=== PATIENT | male | born 1940 | race African-American/Black ===

== ENCOUNTER 2019-03-13 18:36 | Inpatient (IN) ==
[2019-03-13] MEDS ORDERED: ASPIRIN PO ONE (18:41)
--- NOTE | 2019-03-13 18:59 | PROVIDER DOCUMENTATION ---
HPI-Chest Pain - General Chief Complaint: Chest Pain Stated Complaint: CHEST PAIN Time Seen by Provider: 03/13/19 18:50 Source: patient Allergies/Adverse Reactions: Patient Allergies Allergy/AdvReac Type Severity Reaction Status Date / Time No Known Allergies Allergy Verified 08/22/13 07:08 Home Medications: Home Medication List Medication Instructions Recorded Confirmed Last Taken Type Meclizine HCl [Antivert] 25 mg PO TID #20 tablet 08/22/13 Unknown Rx Diphenoxylate/Atropine [Lomotil] 1 each PO 4XDAY PRN PRN #10 tablet 07/23/16 Unknown Rx Potassium Chloride [K-Tab ER] 20 meq PO DAILY #14 tablet.er 07/23/16 Unknown Rx - History of Present Illness-CP Nature of Presenting Problem: 78 yof presents with complaints of chest pain that started yesterday at rest, pressure like, non radiating, resolved with out any intervention. Associated with dizziness and shortness of breath. he reports it came back tonight so he presents to the ER. He has DM and HTN. No previous MA, Last stress test was 10years ago, never had a heart cath. Location: reports: substernal Chest Pain Radiation: reports: no radiation Quality of Pain: reports: pressure Severity in ED: mild (07/07) Onset/Duration: 24 hours ago Timing: still present, intermittent Context/Activities at Onset: reports: none Modifying Factors: improves with: nothing Associated Symptoms: reports: denies symptoms Nitro Today/Relief: no nitro taken today Aspirin Treatment Today: no aspirin today Prior Chest Pain/Cardiac Workup: reports: no prior chest pain, no prior cardiac workup, stress test (10 years ago) Similar Symptoms Previously?: No Recently Seen Here or By Another Healthcare Provider: No Review of Systems - Adult - REVIEW OF SYSTEMS - ADULT Constitutional: reports: no symptoms reported. denies: see HPI, chills, fever, fatique, night sweats, weight gain, weight loss, other Eyes: reports: no symptoms reported Ears, Nose, Mouth & Throat: reports: no symptoms reported. denies: see HPI, ear discharge, ear pain, hearing loss, tinnitus, epistaxis, sinus problem, nose pain, loose teeth, mouth/dental pain, mouth swelling, hoarseness, throat pain, throat swelling, other Cardiovascular: reports: chest pain. denies: no symptoms reported, see HPI, edema, heart murmur, irregular heart rate, orthopnea, palpitations, poor circulation, PND, syncope, other Respiratory: reports: shortness of breath (with chest pain). denies: no symptoms reported, see HPI, chronic cough, cough, dyspnea on exertion, excessive sputum production, hemoptysis, pleurisy, wheezing, other Gastrointestinal: reports: no symptoms reported. denies: see HPI, abdominal pain, hematemesis, constipation, diarrhea, difficulty swallowing, frequent heartburn, nausea, poor appetite, rectal bleeding, vomiting, other Genitourinary: reports: no symptoms reported. denies: see HPI, dysuria, discharge, frequency, flank pain, frequent UTI's, hematuria, hesitency, incontinence, urinary retention, urgency, other Musculoskeletal: reports: no symptoms reported. denies: see HPI, bone pain, back pain, frequent leg cramps, joint pain, joint swelling, muscle aches, muscle weakness, neck pain, other Integumentary: reports: no symptoms reported. denies: see HPI, hives, hair loss, itching, mole changes, nail changes, rash, skin sores/ulcer, skin thickening, other Neurological: reports: dizziness/vertigo (with chest pain). denies: no symptoms reported, see HPI, ataxia, headache/migraines, loss of balance, numbness, paresthesia, seizure, slurred speech, syncope, tremors, other Psychiatric: reports: no symptoms reported. denies: see HPI, anxiety, anti- depressant use, alcohol/drug dependence, depression, emotional problems, insomnia, panic attacks, suicidal thoughts, other Endocrine: reports: no symptoms reported. denies: see HPI, change in skin pigment, excessive sweating, goiter, cold intolerance, heat intolerance, incr eased hunger, increased thirst, polyuria, other Hematologic/Lymphatic: reports: no symptoms reported. denies: see HPI, blood clots, easy bruising, low blood count, lymphedema, prolonged bleeding, swollen lymph nodes, transfusions, other Allergic/Immunologic: reports: no symptoms reported. denies: see HPI, allergic reactions, allergic rhinitis, asthma, eczema, food allergy, frequent infections, hay fever, hives, positive PPD, urticaria, other Past History - Adult - PAST MEDICAL HISTORY-ADULT Review of Records: reports: Nursing Assessment Review, Social history reviewed & non-contributory. Major Childhood Illnesses: reports: denies history Cardiovascular: reports: HTN Respiratory: reports: denies history Gastrointestinal: reports: denies history Obstetrical/Gynecological: reports: denies history Genitourinary: reports: prostate cancer Musculoskeletal: reports: denies history Neurological: reports: denies history Psychiatric: reports: denies history Endocrine/Immune: reports: Diabetes Other Conditions: reports: denies history - PRIOR SURGERIES/PROCEDURES Surgical/Procedure History: reports: cholecystectomy - FAMILY HISTORY Family History: reviewed, not pertinent Physical Exam-General - PHYSICAL EXAM-ADULT Initial Vital Signs Reviewed: Yes - CONSTITUTIONAL General Appearance: appears well, alert, no apparent distress - EYES Eyes: PERRL/EOMI, pink conjunctivae - HEAD, EARS, NOSE, MOUTH & THROAT HENMT: normocephalic/atraumatic, moist mucous membranes, normal ENT inspection - NECK Neck: non-tender, full range of motion, supple - RESPIRATORY Respiratory: chest non-tender, lungs clear, normal breath sounds, no pleuratic chest pain, no respiratory distress, no accessory muscle use - CARDIOVASCULAR Cardiovascular: normal peripheral pulses, regular rate, rhythm, no edema, no gallop, no JVD, no murmur - GASTROINTESTINAL (ABDOMEN) Abdominal Exam: normal bowel sounds, non tender, soft - LYMPHATIC Lymphatic: no adenopathy - MUSCULOSKELETAL Back Exam: normal inspection, no CVA tenderness, no vertebral tenderness Extremity: normal range of motion, non-tender, normal gait, normal inspection Peripheral Pulses: radial (R): 2+, radial (L): 2+ - SKIN Integumentary: normal color, normal turgor, warm/dry - HEART Score HEART Score: History: Moderately Suspicious HEART Score: ECG: Normal HEART Score: Age: > or = 65 Years HEART Score: Risk Factors for Atherosclerotic Disease: 1 or 2 Risk Factors HEART Score: Troponin: < or = Normal Limit Total HEART Score:: 4 Progress - PLAN OF CARE/RESULTS Progress/Plan/Lab Results: Vital Signs - 8 hr 03/13/19 18:39 Temperature 98 F Pulse Rate 86 Respiratory Rate 18 Blood Pressure 165/75 O2 Sat by Pulse Oximetry 98 Laboratory Results - last 24 hr 03/13/19 03/13/19 03/13/19 19:49 19:49 19:49 WBC 4.42 L RBC 3.62 L Hgb 10.5 L Hct 31.9 L MCV 88.1 MCH 29.0 MCHC 32.9 L RDW Std Deviation 12.9 Plt Count 193 MPV 9.2 Immature Gran % (Auto) 0.2 Neut % (Auto) 57.7 Lymph % (Auto) 29.9 [place] % (Auto) 10.0 H Eos % (Auto) 2.0 Baso % (Auto) 0.2 Immature Gran # (Auto) 0.01 Neut # (Auto) 2.55 Lymph # (Auto) 1.32 [place] # (Auto) 0.44 Eos # (Auto) 0.09 Baso # (Auto) 0.01 PT INR PTT (Actin FS) Sodium 138 Potassium 3.8 Chloride 103 Carbon Dioxide 24 L Anion Gap 11 BUN 19 Creatinine 1.5 H Estimated GFR/1.73 m2 45 BUN/Creatinine Ratio 13 Glucose 165 H Calculated Osmolality 282 Calcium 9.7 Total Bilirubin 0.20 AST 17 ALT 14 Alkaline Phosphatase 48 Creatine Kinase 157 Troponin T [id number] Pept 9 Total Protein 7.5 Albumin 4.7 Globulin 3.0 Albumin/Globulin Ratio 2.0 03/13/19 03/13/19 19:49 19:49 WBC RBC Hgb Hct MCV MCH MCHC RDW Std Deviation Plt Count MPV Immature Gran % (Auto) Neut % (Auto) Lymph % (Auto) [place] % (Auto) Eos % (Auto) Baso % (Auto) Immature Gran # (Auto) Neut # (Auto) Lymph # (Auto) [place] # (Auto) Eos # (Auto) Baso # (Auto) PT 13.2 INR 0.95 PTT (Actin FS) 31.8 Sodium Potassium Chloride Carbon Dioxide Anion Gap BUN Creatinine Estimated GFR/1.73 m2 BUN/Creatinine Ratio Glucose Calculated Osmolality Calcium Total Bilirubin AST ALT Alkaline Phosphatase Creatine Kinase Troponin T < 0.010 [id number] Pept Total Protein Albumin Globulin Albumin/Globulin Ratio Orders Category Date Time Status Cardiac Monitoring DIRECTED Care 03/13/19 18:41 Active Oxygen Therapy- ED Nursing DIRECTED Care 03/13/19 18:41 Active Saline Loc NOW Care 03/13/19 18:41 Active CHEST-2 VIEWS [RAD] Stat Exams 03/13/19 18:41 Completed CBC WITH ELECTRONIC DIFF [HEME] Stat Lab 03/13/19 19:49 Completed CK PROFILE [SP CHEM] Stat Lab 03/13/19 19:49 Completed CK PROFILE [SP CHEM] Stat Lab 03/13/19 21:09 Received COMPREHENSIVE METABOLIC PANEL [CHEM] Stat Lab 03/13/19 19:49 Completed PRO B-NATRIURETIC PEPTIDE Stat Lab 03/13/19 19:49 Completed PROTIME WITH INR [COAG] Stat Lab 03/13/19 19:49 Completed PTT [COAG] Stat Lab 03/13/19 19:49 Completed TROPONIN T Stat Lab 03/13/19 19:49 Completed TROPONIN T Stat Lab 03/13/19 20:53 Ordered Aspirin Med 03/13/19 18:41 Discontinued 325 mg PO NOW ONE CP/SOB/Palp >45 yrs of Age Stat Oth 03/13/19 18:41 Ordered EKG [EKG] Stat Ther 03/13/19 18:41 Draft EKG [EKG] Stat Ther 03/13/19 20:53 Ordered Result Diagrams: 03/13/19 19:49 03/13/19 19:49 - EKG 1 Time of EKG reading by physician:: 18:48 EKG Read and Signed by:: Marv Hinton EKG Interpretation (*Must complete 3 of following elements*): Abnormal Rate: 66 Rhythm: nsr with sinus arrythmia [place]: normal QRS: normal, NSIVCD ST Wave: normal Prior EKG Comparison: changes noted - XRAY 1 XRAY Study: Chest Impression: See EMR Report (EXAM: CHEST-2 VIEWS 03/13/2019 HISTORY: CHEST PAIN SOB TECHNIQUE: PA and lateral chest COMMENT: There is no evidence of acute cardiac or pulmonary disease. Compared to 08/07/2012 there has been no significant change. IMPRESSION: No evidence of acute disease. Electronically signed by Dyllan Navarro 03/13/2019 7:38 PM 03/13/191937 Interpreting Physician: Dyllan Navarro MD Dictated Date/Time: 03/13/191937 cc: Marv Hinton MD; Av Carlos MD) - CONSULTS/PCP/HOSPITALIST Notification #1 *Consult/PCP/Hospitalist*: DR BRUNNER Time Discussed: 21:24 Consult Disposition: Admit Departure - Departure Date of Disposition Decision: 03/13/19 Time of Disposition Decision: 21:24 DIAGNOSIS: Chest pain Disposition: ADMITTED INPATIENT 09 Certified Medical Emergency: Emergent Condition: Stable Referrals and Follow-Ups: Av Carlos MD [Primary Care Provider] - - Critical Care Note This patient required my direct & personal management of CC.: No Attestation - Physician/ JASWINDER Attestation Patient care was provided by Advanced Practice Provider:: Yes Advanced Practice Provider:: Janice Winn Advanced Practice Provider documentation review:: The Mid-level provider documentation, treatment plan and medical decision making was reviewed by the physician who agrees with all treatment and medical decision making by the MLP. The physician spent face to face time with patient:: No Advanced Practice Provider documentation review:: Supervising physician onsite and consulted in the evaluation and care of this patient. The physician did not have a face to face encounter with the patient.
--- NOTE | 2019-03-13 19:22 | EKG Report ---
Test Performed on : 03/13/2019 6:48:45 PM Test Reason : CHEST PAIN SOB Blood Pressure : / mmHG Vent. Rate : 066 BPM Atrial Rate : 066 BPM P-R Int : 196 ms QRS Dur : 088 ms QT Int : 410 ms P-R-T Axes : 051 005 024 degrees QTc Int : 429 ms Sinus rhythm. with marked sinus arrhythmia. Otherwise normal ECG No previous ECGs available Unconfirmed Result
--- NOTE | 2019-03-13 19:41 | Diag Imaging Result Doc PS360 ---
EXAM: CHEST-2 VIEWS 03/13/2019 HISTORY: CHEST PAIN SOB TECHNIQUE: PA and lateral chest COMMENT: There is no evidence of acute cardiac or pulmonary disease. Compared to 08/07/2012 there has been no significant change. IMPRESSION: No evidence of acute disease. Electronically signed by Dyllan Navarro 03/13/2019 7:38 PM
[2019-03-13 19:59] LABS: BASO# 0.01 X1000 (0.0-0.2); BASO% 0.2 % (0.0-0.8); EOS# 0.09 X1000 (0.0-0.7); HEMATOCRIT 31.9 % (42.0-52.0); HEMOGLOBIN 10.5 g/dL (14.0-18.0); IMM GRAN# 0.01 X1000 (0.0-0.04); IMM GRAN% 0.2 % (0.0-0.5); LYMPH# 1.32 X1000 (1.2-3.4); LYMPH% 29.9 % (20.5-51.1); MCHC 32.9 g/dL (33-37); MCV 88.1 FL (81-99); MONO# 0.44 X1000 (0.11-0.59); MPV 9.2 FL (7.4-10.4); NEUT# 2.55 X1000 (1.4-6.5); NEUT% 57.7 % (42.2-75.2); PLT 193 X1000 (130-400); RBC 3.62 XMIL (4.7-6.1); RDW 12.9 % (11.5-14.5); WBC 4.42 X1000 (4.8-10.8)
[2019-03-13 20:11] LABS: INR 0.95; PROTIME 13.2 Seconds (11.0-16.0)
[2019-03-13 20:12] LABS: PTT 31.8 Seconds (22.3-41.8)
[2019-03-13 20:15] LABS: ALBUMIN 4.7 g/dL (3.5-5.0); CALCIUM 9.7 mg/dL (8.8-10.2); CREATININE 1.5 mg/dL (0.7-1.2); POTASSIUM 3.8 mmol/L (3.5-5.1); TOTAL BILIRUBIN 0.2 mg/dL (0.20-1.00); TOTAL PROTEIN 7.5 g/dL (6.3-8.3)
[2019-03-14] MEDS ORDERED: FLU VACCINE IM ONE (00:23)
[2019-03-14 08:07] VITALS: BP 108/63
[2019-03-14 11:57] LABS: CALCIUM 9.5 mg/dL (8.8-10.2); CREATININE 1.4 mg/dL (0.7-1.2); POTASSIUM 3.9 mmol/L (3.5-5.1)
--- NOTE | 2019-03-14 14:13 | Diag Imaging Result Document ---
PROCEDURE NAME: MYOCARDIAL PERF SCAN, STR/REST - 03/13/2019 INDICATION: Chest pain. PROCEDURES PERFORMED: 1. Jayjay protocol stress. 2. One-day stress/rest myocardial perfusion imaging. FINDINGS: Jayjay protocol stress results: 1. Baseline EKG shows sinus rhythm. 2. Patient exercised for a total of 5 minutes 6 seconds, achieving a peak heart rate of 123 which was 86% of age predicted max. He achieved 7 METS in mid stage 2 of the Jayjay protocol. Exercise capacity was 85% of age and sex predicted exercise capacity. 3. Appropriate blood pressure response to exercise. 4. The test was terminated due to fatigue. 5. The patient had 3/10 chest pain at peak with quick resolution. No shortness of breath. No palpitations. 6. He had 1 to [address] depression in the lateral leads with no significant arrhythmias. 7. [place] treadmill Score is -9 indicating a moderate risk study. Perfusion imaging results: 1. No evidence of abnormal extracardiac uptake. 2. TID ratio 0.72. 3. Perfusion imaging demonstrates what appears to be normal homogeneous uptake of radiotracer throughout the myocardial segments. There is no evidence of stress-related defects during the course of the study. 4. Normal ejection fraction of 73%. The end-diastolic volume is 71. End systolic volume 19. Normal wall motion is noted. cc: Titi Dunlap MD
--- NOTE | 2019-03-14 15:05 | HISTORY AND PHYSICAL ---
CHIEF COMPLAINT: Chest pain. HISTORY OF PRESENT ILLNESS: This is a 78-year-old gentleman with a history of diabetes mellitus and hypertension. He presented to the emergency room complaining of substernal chest pain. He described it as a pressure type pain. It had no radiation. It did resolve without any intervention. He did have some accompanying shortness of breath and dizziness although these symptoms resolved with chest pain resolution. He reported an episode that was about 24 hours prior to coming to the emergency room. As it recurred, he presented to the emergency room for evaluation. He denies any prior cardiac history. He did have a Lexiscan in 2012 that was negative for ischemia. PAST MEDICAL HISTORY: Diabetes mellitus type 2, hypertension, prostate cancer. PAST SURGICAL HISTORY: Cholecystectomy. SOCIAL HISTORY: He denies alcohol, tobacco, or illicit drug use. FAMILY HISTORY: Positive for hypertension, diabetes mellitus in his parents. ALLERGIES: No known drug allergies. SOCIAL HISTORY: He denies any alcohol, tobacco, or illicit drug use. HOME MEDICATIONS: 1. Metformin 1000 mg p.o. daily. 2. Lisinopril 20 mg p.o. daily. 3. Hydrochlorothiazide 25 mg p.o. daily. 4. Glipizide 10 mg p.o. b.i.d. 5. Glimepiride 2 mg p.o. daily. 6. Latanoprost 0.005% 1 drop in each eye at bedtime. REVIEW OF SYSTEMS: Discussed with patient with pertinent positives stated in the HPI. He denied any syncope, any palpitations, any cough, fever, chills, night sweats, PND, orthopnea, any nausea, vomiting, diarrhea, constipation, black or bloody vomitus or stools, any hematuria, dysuria, frequency, urgency. PHYSICAL EXAMINATION: GENERAL: This is a 78-year-old gentleman who is sitting up on the bed on the medical-surgical floor in no distress. VITAL SIGNS: Blood pressure is 108/63 with a heart rate of 63, respirations are 18, temperature is 97.3 degrees with room air saturations 100%. EYES: Pupils are equal, round, react to light. EOMs are intact. Sclerae are anicteric. HEENT: Head is normocephalic, atraumatic. Mucous membranes are moist. NECK: Supple with trachea midline. CARDIOVASCULAR: Regular rate and rhythm. S1 and S2 appreciated. He has no lower extremity edema. Calves are nontender bilateral with peripheral pulses palpable x4 extremities. PULMONARY: Breath sounds are clear with no increased work of breathing noted. Chest rises and falls symmetrically with respiration. Chest wall is nontender to palpation. GASTROINTESTINAL: Abdomen is soft, nontender, nondistended with bowel sounds in all 4 quadrants. NEUROLOGIC: He is alert and oriented x3. SKIN: Warm and dry. LABORATORY DATA: WBC is 4.4 with hemoglobin 10.5, hematocrit 31.9, platelets of 193,000. Sodium is 138, potassium 3.8, BUN 19, creatinine 1.5 with a glucose of 165. Troponins are negative on multiple occasions. EKG revealed sinus rhythm with sinus arrhythmia at a rate of 66. IMAGING: Chest x-ray revealed no evidence of acute disease. ASSESSMENT: 1. Chest pain. 2. Hypertension. 3. Diabetes mellitus type 2. 4. Acute kidney injury. PLAN: The patient has been admitted to the medical-surgical floor and placed on telemetry which will continue. continue to trend troponins. identify his home medications and continue these as appropriate. Trend labs daily Renal dose medications as appropriate. Recheck labs FSBG/SSI Plan was discussed with Dr. Sorenson. Further treatments pending hospital course. Dictated by MILES Ramachandran for Souleymane Sorenson MD cc: MILES Ramachandran MD [facility]
--- NOTE | 2019-03-14 19:41 | HISTORY AND PHYSICAL ---
ADDENDUM: Patient seen and examined by me. Full note dictated and discussed with nurse practitioner. The patient presented to the hospital with chest pain. Currently he notes his chest pain has resolved. His enzymes so far have been negative. We are going to attempt to get a stress test today. Hopefully that will be negative and he can discharge home. cc: Souleymane Sorenson MD
--- NOTE | 2019-03-15 15:10 | DISCHARGE SUMMARY ---
ADMISSION DATE: 03/13/2019 DISCHARGE DATE: 03/14/2019 DISCHARGE DIAGNOSES: 1. Chest pain, resolved. 2. Hypertension. 3. History of diabetes. 4. History of prostate cancer. CONSULTATIONS: None. PROCEDURES: Cardiolite GXT. Negative. Please see full report. BRIEF HOSPITAL COURSE: The patient was admitted to the hospital with chest pain. Given his age, history of prostate cancer, diabetes, hypertension, he certainly is at elevated risk for heart disease. He was admitted, ruled out for IA. As his enzymes were negative, his chest pain resolved. He underwent a stress test which also thankfully was negative. DISPOSITION: Patient to be discharged home to follow up outpatient with his primary care to continue to follow his blood pressures and blood sugars. 30 minutes was spent. cc: Souleymane Sorenson MD
== END 2019-03-14 16:58 | disposition home or self-care (01) | DRG 313 ==
LOC: P.ED 18:36 → P.MEDSURG 21:53
PROVIDERS: ATTEND Family Medicine